=== PATIENT | male | born 1995 | race Caucasian/White ===

== ENCOUNTER → 2023-05-22 | Emergency (ER) | payer OTHER ==
[~2023-05-22] MED LIST: CYCLOBENZAPRINE 10 MG TAB ONE
--- OUTSIDE RECORDS SUMMARY | 2023-05-22 19:21 | XMS REPORT | Continuity of Care Document ---
Author Name Unknown Address [address] [place] [id number] [facility] Address [address] [place] [address] Care Team Providers Care Site Safety Representative Name Role Phone RUEL LINTON Attending Clinician Unavailable Joselyn Krueger Attending Clinician Unavailab mary Donnelly Attending Clinician Unavailable NAHEED RAMIREZ Attending Clinician Unavailable SANTI FRENCH Attending Clinician Unavailable JAH KING Attending Clinician UnavailSAMANTHA griffin BA Attending Clinician Unavailable ZORAN IGLESIAS Attending Clinician UnavailDUSTIN Moraes Attending Clinician Unavailable Cony Admitting Clinician Unavailable Payers Payer Name Policy Type Policy Number Effective Date Expirati on Date Source [employer]ET[employer] MP [facility] 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 [place] 9 [id number] 2023 00:00:00 [place] [id number] 2014 00:00:00 Encounters Start Date/Time End Date/Time Encounter Type Admission Type Attending Clinicians Care Facility Care Department Encounter ID Source 2023-04-29 10:30:00 2023-04-29 10:30:00 Outpatient RUEL LINTON [id number] Krystina Talley 2022-03-09 11:25:00 2022-03-09 17:53:00 Emergency ER Joselyn Krueger [facility] [id number] [facility] 2019-11-13 03:11:00 2019-11-13 03:11:00 Outpatient Cony BLAKE [facility] [id number] [facility] 2015-12-11 12:24:00 2015-12-11 14:38:00 Emergency ER NAHEED RAMIREZ [facility] [id number] [facility] 2015-02-05 18:30:00 2015-02-05 20:15:00 Emergency ER SANTI FRENCH [facility] [id number] [facility] 2014-11-12 20:36:00 2014-11-12 21:29:00 Emergency ER SANTI FRENCH [facility] [id number] [facility] 2014-10-23 19:49:00 2014-10-23 20:10:00 Emergency ER JAH KING [facility] [id number] [facility] 2014-09-18 17:47:00 2014-09-18 21:20:00 Emergency ER SAMANTHA PATIÑO [facility] [id number] [facility] 2013-12-12 18:58:00 2013-12-12 19:39:00 Emergency ER ZORAN IGLESIAS [facility] [id number] [facility] 2012-03-31 19:39:00 2012-03-31 22:05:00 Emergency ER JAH KING [facility] [id number] [facility] 2007-06-27 12:07:00 2007-06-27 12:07:00 Outpatient DUSTIN DOSHI [facility] [id number] [facility]
--- NOTE | 2023-05-22 19:39 | ER ---
Nurse's Notes [facility] Name: Raymundo Renteria Age: 28 yrs Sex: Male : 1995 Arrival Date: 05/22/2023 Time: 19:18 Bed 12 Private MD: Diagnosis: Intercostal pain Presentation: 05/21 19:26 Chief complaint: Patient states: right sided rib pain that started today after throwing as6 a football with his son. Coronavirus screen: At this time, the client does not indicate any symptoms associated with coronavirus-19. Ebola Screen: No symptoms or risks identified at this time. Initial Sepsis Screen: Does the patient meet any 2 criteria? No. Patient's initial sepsis screen is negative. Does the patient have a suspected source of infection? No. Patient's initial sepsis screen is negative. Risk Assessment: Do you want to hurt yourself or someone else? Patient reports no desire to harm self or others. Onset of symptoms was May 22, 2023. 19:26 Acuity: PAGE 4 as6 19:26 Method Of Arrival: Ambulatory as6 Triage Assessment: 19:25 General: Appears in no apparent distress. Behavior is calm, cooperative. Pain: as6 Complains of pain in right lateral anterior chest and right lateral posterior chest. Historical: - Allergies: 19:26 No Known Allergies; as6 - Home Meds: 19:26 None [Active]; as6 - PMHx: 19:26 None; as6 - PSHx: 19:26 None; as6 - Immunization history:: Adult Immunizations not up to date. - Social history:: Smoking status: Patient reports the use of cigarette tobacco products, denies chronic smoking, but will smoke occasionally. Screenin:47 [facility] ED Fall Risk Assessment (Adult) History of falling in the last 3 months, vc1 including since admission No falls in past 3 months (0 pts) Confusion or Disorientation No (0 pts) Intoxicated or Sedated No (0 pts) Impaired Gait No (0 pts) Mobility Assist Device Used No (0 pt) Altered Elimination No (0 pt) Score/Fall Risk Level 0 - 2 = Low Risk Oriented to surroundings, Maintained a safe environment, Educated pt \T\ family on fall prevention, incl call for assistance when getting out of bed. Abuse screen: Denies threats or abuse. Nutritional screening: No deficits noted. Tuberculosis screening: No symptoms or risk factors identified. Assessment: 19:50 General: Appears in no apparent distress. Behavior is calm, cooperative, appropriate vc1 for age. Pain: Complains of pain in right lateral posterior chest and right lateral anterior chest Pain does not radiate. Pain currently is 8 out of 10 on a pain scale. Quality of pain is described as sharp, Pain began suddenly. Neuro: Level of Consciousness is awake, alert, obeys commands, Oriented to person, place, time, situation, Appropriate for age. Cardiovascular: No deficits noted. Respiratory: Airway is patent Respiratory effort is even, unlabored, Respiratory pattern is regular, symmetrical. GI: No deficits noted. No signs and/or symptoms were reported involving the gastrointestinal system. : No deficits noted. No signs and/or symptoms were reported regarding the genitourinary system. EENT: No deficits noted. No signs and/or symptoms were reported regarding the EENT system. Derm: No deficits noted. No signs and/or symptoms reported regarding the dermatologic system. Musculoskeletal: No deficits noted. No signs and/or symptoms reported regarding the musculoskeletal system. Vital Signs: 19:25 BP 133 / 93; Pulse 72; Resp 16 S; Temp 97.7(TE); Pulse Ox 100% on R/A; Weight 77.11 kg as6 (R); Height 6 ft. 1 in. (R); Pain 6/10; 19:25 Body Mass Index 22.43 (77.11 kg, 185.42 cm) as6 19:25 Pain Scale: Adult as6 ED Course: 19:20 Patient arrived in ED. ra3 19:20 Lolis Magana PA-C is PHCP. sb4 19:20 Joel Tyler DO is Attending Physician. sb4 19:25 Arm band placed on. as6 19:27 Triage completed. as6 19:28 Patient has correct armband on for positive identification. Bed in low position. Call vc1 light in reach. NIBP on. 19:48 No provider procedures requiring assistance completed. Patient did not have IV access vc1 during this emergency room visit. 19:49 Provided Education on: Can take together do not drive after taking the cyclobenzaprine. vc1 Administered Medications: 19:43 Drug: Cyclobenzaprine PO 10 mg PO once Route: PO; vc1 19:47 Follow up: Response: Medication administered at discharge. vc1 Medication: 19:48 VIS not applicable for this client. vc1 Outcome: 19:39 Discharge ordered by . sb4 19:49 Discharged to home ambulatory, vc1 19:49 Condition: good 19:49 Discharge instructions given to patient, Instructed on discharge instructions, follow up and referral plans. medication usage, Demonstrated understanding of instructions, follow-up care, medications, Prescriptions given X 2, 19:52 Patient left the ED. vc1 Signatures: Jose Daniel Moctezuma, RN RN as6 Akanksha Jimenez RN RN vc1 Lolis Magana, PA-C PA-C sb4 Katy Lay ra3
--- NOTE | 2023-05-22 19:39 | EDPHYS ---
Physician Documentation [facility] Name: Raymundo Renteria Age: 28 yrs Sex: Male : 1995 Arrival Date: 05/22/2023 Time: 19:18 Bed 12 Private MD: ED Physician Joel Tyler HPI: 05/21 19:42 This 28 yrs old Male presents to ER via Ambulatory with complaints of Ribcage pain. sb4 19:42 patient reports pain in his lower, anterior, right sided rib cage. states it has been sb4 hurting for a few days but started hurting worse today after throwing the football with his son. he has not taken any OTC medications or iced it. denies any specific injury prior. denies any recent illness/ coughing. Historical: - Allergies: 19:26 No Known Allergies; as6 - Home Meds: 19:26 None [Active]; as6 - PMHx: 19:26 None; as6 - PSHx: 19:26 None; as6 - Immunization history:: Adult Immunizations not up to date. - Social history:: Smoking status: Patient reports the use of cigarette tobacco products, denies chronic smoking, but will smoke occasionally. ROS: 19:42 Constitutional: Negative for fever, chills, and weight loss, sb4 19:42 MS/extremity: Positive for pain, of the right lateral anterior chest, 19:42 All other systems are negative, Exam: 19:42 Constitutional: This is a well developed, well nourished patient who is awake, alert, sb4 and in no acute distress. Head/Face: Normocephalic, atraumatic. Eyes: Extra-ocular motions intact. Periorbital areas with no swelling, redness, or edema. ENT: Mucous membranes moist. Skin: Warm, dry with normal turgor. Normal color with no rashes, no lesions, and no evidence of cellulitis. MS/ Extremity: Pulses equal, no cyanosis. Neurovascular intact. Full, normal range of motion. Neuro: Awake and alert, GCS 15, oriented to person, place, time, and situation. Motor strength 5/5 in all extremities. Sensory grossly intact. 19:42 Chest/axilla: Inspection: normal, Palpation: tenderness, that is mild, of the right tenth rib, that partially reproduces the patient's complaints, Vital Signs: 19:25 BP 133 / 93; Pulse 72; Resp 16 S; Temp 97.7(TE); Pulse Ox 100% on R/A; Weight 77.11 kg as6 (R); Height 6 ft. 1 in. (R); Pain 6/10; 19:25 Body Mass Index 22.43 (77.11 kg, 185.42 cm) as6 19:25 Pain Scale: Adult as6 MDM: 19:28 Patient medically screened. sb4 19:42 Differential diagnosis: sprain, strain, costocondritis. Data reviewed: vital signs, sb4 nurses notes, and as a result, I will discharge patient. Test considered but Not performed: X-ray: not indicated, history is not suspicious for a rib fracture. Counseling: I had a detailed discussion with the patient and/or guardian regarding the historical points, exam findings, and any diagnostic results supporting the discharge/admit diagnosis, to return to the emergency department if symptoms worsen or persist or if there are any questions or concerns that arise at home. Administered Medications: 19:43 Drug: Cyclobenzaprine PO 10 mg PO once Route: PO; vc1 19:47 Follow up: Response: Medication administered at discharge. vc1 Disposition: 21:15 I was immediately available on-site in the Emergency Department for consultation in the ms3 care of the patient. Disposition Summary: 05/22/23 19:39 Discharge Ordered Notes: Location: Home sb4 Problem: new sb4 Symptoms: are unchanged sb4 Condition: Stable sb4 Diagnosis - Intercostal pain sb4 Followup: sb4 - With: Emergency Department - When: As needed - Reason: Trouble breathing, Worsening of condition Discharge Instructions: - Discharge Summary Sheet sb4 - Musculoskeletal Pain sb4 Forms: - Thank You Letter sb4 - Patient Portal Instructions sb4 - Leadership Thank You Letter sb4 Prescriptions: - Ibuprofen 800 mg Oral Tablet - take 1 tablet ORAL route every 12 hours As needed take with food; 20 tablet; sb4 Refills: 0, Product Selection Permitted - Cyclobenzaprine 5 mg Oral Tablet - take 1 tablet ORAL route 3 times per day As needed; 15 tablet; Refills: 0, sb4 Product Selection Permitted Signatures: Joel Tyler DO DO ms3 Jose Daniel Moctezuma RN RN as6 Akanksha Jimenez RN RN vc1 Lolis Magana, PA-C PA-C sb4
[2023-05-22 20:05] VITALS: BP 133/93; TEMP 97.7; O2SAT 100
== END ==
LOC: ER 19:18
DX: R07.82 Intercostal pain (principal); F17.210 Nicotine dependence, cigarettes, uncomplicated
CPT/HCPCS: 99283

== ENCOUNTER 2024-05-22 23:02 | Emergency (ER) | payer OTHER, SELFPAY ==
--- OUTSIDE RECORDS SUMMARY | 2024-05-22 23:04 | XMS REPORT | Continuity of Care Document ---
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 ON 9 [id number] 2023 00:00:00 [place] [id number] 2014 00:00:00 Encounters Start Date/Time End Date/Time Encounter Type Admission Type Attending Clinicians Care Facility Care Department Encounter ID Source 2023-04-29 10:30:00 2023-04-29 10:30:00 Outpatient RUEL LINTON [id number] Krystina Talley 2022-03-09 11:25:00 2022-03-09 17:53:00 Emergency ER Joselyn Krueger [facility] [id number] [facility] 2019-11-13 03:11:00 2019-11-13 03:11:00 Outpatient Cony BLAKE [facility] [id number] [facility] 2015-12-11 12:24:00 2015-12-11 14:38:00 Emergency ER NAHEED RAMIREZ [facility] [id number] [facility] 2015-02-05 18:30:00 2015-02-05 20:15:00 Emergency ER SANTI FRENCH [facility] [id number] [facility] 2014-11-12 20:36:00 2014-11-12 21:29:00 Emergency ER SANTI FRENCH [facility] [id number] [facility] 2014-10-23 19:49:00 2014-10-23 20:10:00 Emergency ER JAH KING [facility] [id number] [facility] 2014-09-18 17:47:00 2014-09-18 21:20:00 Emergency ER SAMANTHA PATIÑO [facility] [id number] [facility] 2013-12-12 18:58:00 2013-12-12 19:39:00 Emergency ER ZORAN IGLESIAS [facility] [id number] [facility] 2012-03-31 19:39:00 2012-03-31 22:05:00 Emergency ER JAH KING [facility] [id number] [facility] 2007-06-27 12:07:00 2007-06-27 12:07:00 Outpatient DUSTIN DOSHI [facility] [id number] [facility]
[2024-05-22 23:54] LABS: Influenza A Ag Negative; Influenza B Ag Negative; SARS-CoV-2 Antigen Rapid Res Negative (Negative)
--- NOTE | 2024-05-22 23:58 | ER ---
Nurse's Notes [facility] Name: Raymundo Renteria Age: 29 yrs Sex: Male : 1995 Arrival Date: 05/22/2024 Time: 23:02 Bed IW2 Private MD: Diagnosis: Acute upper respiratory infection, unspecified Presentation: 05/22 23:15 Chief complaint: Patient states: c/o cough, congestion, fever, aches, chills, sore me1 throat and n/d 3 days. Migraine x 2 days pain 10/22. Coronavirus screen: Vaccine status: Patient reports receiving the 2nd dose of the covid vaccine. Ebola Screen: No symptoms or risks identified at this time. Initial Sepsis Screen: Does the patient meet any 2 criteria? No. Patient's initial sepsis screen is negative. Does the patient have a suspected source of infection? No. Patient's initial sepsis screen is negative. Risk Assessment: Do you want to hurt yourself or someone else? Patient reports no desire to harm self or others. Onset of symptoms was May 19, 2024. 23:15 Method Of Arrival: Ambulatory [facility] 23:15 Acuity: PAGE 4 me1 Triage Assessment: 23:18 General: Appears ill, well groomed, well developed, well nourished, Behavior is calm, me1 cooperative, appropriate for age. Pain: Complains of pain in head Pain does not radiate. Pain currently is 8 out of 10 on a pain scale. Quality of pain is described as aching, Pain began gradually, 2-3 days ago. Is continuous. EENT: Reports difficulty swallowing since 3 days nasal congestion. Neuro: Level of Consciousness is awake, alert, obeys commands, Oriented to person, place, time, situation, Appropriate for age. Cardiovascular: Patient's skin is warm and dry. Respiratory: Reports cough that is non-productive, Airway is patent Respiratory effort is even, unlabored, Respiratory pattern is regular, symmetrical, Breath sounds are clear bilaterally. GI: Reports diarrhea, nausea. : No signs and/or symptoms were reported regarding the genitourinary system. Derm: Skin is intact, is healthy with good turgor, Skin is pink, warm \T\ dry. Musculoskeletal: No signs and/or symptoms reported regarding the musculoskeletal system. Historical: - Allergies: 23:18 No Known Allergies; me1 - Home Meds: 23:18 None [Active]; me1 - PMHx: 23:18 None; me1 - PSHx: 23:18 None; me1 - Immunization history:: Adult Immunizations up to date. - Infectious Disease History:: Denies. - Social history:: Smoking status: Reported history of juuling and/or vaping. Screenin:35 [facility] ED Fall Risk Assessment (Adult) History of falling in the last 3 months, me1 including since admission No falls in past 3 months (0 pts) Confusion or Disorientation No (0 pts) Intoxicated or Sedated No (0 pts) Impaired Gait No (0 pts) Mobility Assist Device Used No (0 pt) Altered Elimination No (0 pt) Score/Fall Risk Level 0 - 2 = Low Risk Maintained a safe environment, Provided non-skid footwear, Hourly rounding (assess needs \T\ fall precautionary measures) done. Abuse screen: Denies threats or abuse. Nutritional screening: No deficits noted. Tuberculosis screening: No symptoms or risk factors identified. Assessment: 23:35 General: See triage assessment. me1 23:35 Cardiovascular: Patient's skin is warm and dry. Respiratory: Airway is patent me1 Respiratory effort is even, unlabored, Respiratory pattern is regular, symmetrical. 05/23 00:10 General: Appears in no apparent distress. comfortable, Behavior is calm, cooperative. lg3 Pain: Complains of pain in head, throat, body aches. Neuro: No deficits noted. Jett Agitation-Sedation Scale (RASS): 0 - Alert and Calm Level of Consciousness is awake, alert, obeys commands, Oriented to person, place, time, situation. Cardiovascular: No deficits noted. Heart tones S1 S2 present Capillary refill < 3 seconds Clubbing of nail beds is absent JVD is absent Patient's skin is warm and dry. Respiratory: No deficits noted. Reports cough that is pain with cough Airway is patent Respiratory effort is even, unlabored, Respiratory pattern is regular, symmetrical, Breath sounds are clear bilaterally. GI: No deficits noted. Abdomen is flat, non-distended, Reports nausea. : No signs and/or symptoms were reported regarding the genitourinary system. EENT: No deficits noted. Derm: No deficits noted. Skin is intact, is healthy with good turgor, Skin is dry, Skin is normal, Skin temperature is warm. Musculoskeletal: No deficits noted. Circulation, motion, and sensation intact. Range of motion: intact in all extremities. Vital Signs: 05/22 23:15 BP 152 / 82; Pulse 80; Resp 17; Temp 99.1; Pulse Ox 100% ; Weight 81.65 kg; Height 6 me1 ft. 1 in. ; Pain 10/22; 05/23 00:10 BP 147 / 88; Pulse 87; Resp 18 S; Temp 98.6(O); Pulse Ox 100% on R/A; lg3 05/22 23:15 Body Mass Index 23.75 (81.65 kg, 185.42 cm) nc1 05/22 23:15 Pain Scale: Adult [facility] ED Course: 05/22 23:10 Patient arrived in ED. gm2 23:11 Yolanda Kyle FNP-C is [facility]. kb 23:11 Gustabo Justin MD is Attending Physician. kb 23:18 Triage completed. me1 23:18 Arm band placed on Patient placed in waiting room. me1 23:21 COVID swab sent to lab. Flu and/or RSV swab sent to lab. Strep swab sent to lab. me1 23:35 Patient has correct armband on for positive identification. Provided Education on: POC. nc1 Verbalized understanding.. 23:35 No provider procedures requiring assistance completed. Patient did not have IV access me1 during this emergency room visit. Administered Medications: No medications were administered Medication: 23:35 VIS not applicable for this client. nc1 Outcome: 23:57 Discharge ordered by . igor 05/23 00:10 Discharged to home ambulatory, lg3 Condition: stable Discharge instructions given to patient, Instructed on discharge instructions, follow up and referral plans. medication usage, Demonstrated understanding of instructions, follow-up care, medications, Prescriptions given X 1, 00:12 Patient left the ED. lg3 Signatures: Yolanda Kyle FNP-C FNP-Atiya Mueller RN RN 3 Shreya Russo RN RN nc1 Awilda Varma 2
--- NOTE | 2024-05-22 23:58 | EDPHYS ---
Physician Documentation [facility] Name: Raymundo Renteria Age: 29 yrs Sex: Male : 1995 Arrival Date: 05/22/2024 Time: 23:02 Bed IW2 Private MD: ED Physician Gustabo Justin HPI: 05/22 23:20 This 29 yrs old Male presents to ER via Ambulatory with complaints of Congestion, kb Fever, Headache. 23:20 Pt is a 29 year old male who presents for cough, congestion, sore throat, fever, kb chills, bodyaches, headache, nausea and diarrhea that started 3 days ago. denies vomiting. . Historical: - Allergies: 23:18 No Known Allergies; me1 - Home Meds: 23:18 None [Active]; me1 - PMHx: 23:18 None; me1 - PSHx: 23:18 None; me1 - Immunization history:: Adult Immunizations up to date. - Infectious Disease History:: Denies. - Social history:: Smoking status: Reported history of juuling and/or vaping. ROS: 23:21 Constitutional: As per HPI kb Exam: 23:21 Constitutional: This is a well developed, well nourished patient who is awake, alert, kb and in no acute distress. Head/Face: Normocephalic, atraumatic. ENT: Moist Mucous membranes Cardiovascular: Regular rate Respiratory: Respirations even and unlabored. No increased work of breathing. Talking in full sentences Skin: Warm, dry with normal turgor. Normal color. MS/ Extremity: Pulses equal, no cyanosis. Neurovascular intact. Full, normal range of motion. Neuro: Awake and alert, GCS 15, oriented to person, place, time, and situation. Vital Signs: 23:15 BP 152 / 82; Pulse 80; Resp 17; Temp 99.1; Pulse Ox 100% ; Weight 81.65 kg; Height 6 me1 ft. 1 in. ; Pain 10/22; 05/23 00:10 BP 147 / 88; Pulse 87; Resp 18 S; Temp 98.6(O); Pulse Ox 100% on R/A; lg3 05/22 23:15 Body Mass Index 23.75 (81.65 kg, 185.42 cm) me1 05/22 23:15 Pain Scale: Adult me1 MDM: 05/22 23:11 Medical Screening Exam initiated kb 23:57 Differential diagnosis: covid, flu, strep, uri, viral illness. Data reviewed: vital kb signs, nurses notes. I considered the following discharge prescriptions or medication management in the emergency department I discussed and recommended Over The Counter medications, Antibiotics: At this time antibiotics are not recommended, Antivirals: At this time, antivirals are not recommended. Historians other than the Patient: Parent: mother. Counseling: I had a detailed discussion with the patient and/or guardian regarding the historical points, exam findings, and any diagnostic results supporting the discharge/admit diagnosis, lab results, the need for outpatient follow up, a family practitioner, to return to the emergency department if symptoms worsen or persist or if there are any questions or concerns that arise at home. 05/22 23:19 Order name: COVID-19 Ag + Flu A+B Ag; Complete Time: 23:55 kb 05/22 23:19 Order name: Group A Streptococcus Rapid; Complete Time: 23:55 kb 05/22 23:57 Order name: Throat Culture EDMS Administered Medications: No medications were administered Disposition: 05/23 00:33 Co-signature as Attending Physician, Gustabo Justin MD I reviewed the patient's care rt provided by the Advanced Practice Provider and agree with the diagnosis and treatment plan. Disposition Summary: 05/22/24 23:57 Discharge Ordered Notes: Location: Home kb Condition: Stable kb Diagnosis - Acute upper respiratory infection, unspecified kb Followup: kb - With: Emergency Department - When: As needed - Reason: Worsening of condition Followup: kb - With: Private Physician - When: 2 - 3 days - Reason: Recheck today's complaints, Continuance of care, Re-evaluation by your physician Discharge Instructions: - Discharge Summary Sheet kb - Upper Respiratory Infection, Adult, Pheg-my-Ewky kb - Viral Respiratory Infection, Ywmt-Rr-Gyqe kb Forms: - Medication Reconciliation Form kb - Antibiotic Education kb - Prescription Opioid Use kb - Patient Portal Instructions kb - Leadership Thank You Letter kb - Work release form lg3 Prescriptions: - Zofran 4 mg Oral tablet - take 1 tablet ORAL route every 6 hours As needed; 12 tablet; Refills: 0, kb Product Selection Permitted Signatures: Dispatcher [employer] EDYolanda Andrews FNP-C FNP-Ckb Gustabo Justin MD MD rt Shreya Russo, RN RN me1
[2024-05-23 01:06] VITALS: O2SAT 100
[2024-05-23 01:08] VITALS: BP 147/88; TEMP 98.6
== END 2024-05-23 00:12 | disposition home or self-care (01) ==
LOC: ER 23:02
DX: J06.9 Acute upper respiratory infection, unspecified (principal); Z11.52 Encounter for screening for COVID-19
CPT/HCPCS: 36415; 87070; 87428; 99283